=== PATIENT | male | born 1970 | race Caucasian/White ===

== ENCOUNTER 2018-05-29 09:45 | Day surgery (SDC) | payer BC, OTHER ==
[2018-05-29 09:47] LABS: Absolute Lymphocytes (CBC) 1.5 K/uL (0.7-4.9); Absolute Monocytes 1.3 K/uL (0.1-1.3); Absolute Neutrophil 6.8 K/uL (1.8-8.0); Basophils % 0.8 % (0-1.3); Eosinophils % 1.4 % (0-4.4); Hematocrit 47.9 % (39.6-49.0); Lymphocytes % 15.6 % (15.3-44.8); MPV 8.1 fL (7.6-11.3); RBC Red Blood Cell Count 5.16 M/uL (4.33-5.43)
--- NOTE | 2018-05-29 09:49 | RAD REPORT ---
EXAM DESCRIPTION: RAD - Chest Pa And Lat (2 Views) - 05/29/2018 9:43 am CLINICAL HISTORY: preop Chest pain. COMPARISON: No comparisons FINDINGS: The lungs are clear. The heart is normal in size. No displaced fractures. IMPRESSION: No acute or concerning finding suspected.
[2018-05-29] MEDS ORDERED: NA CHLORIDE 0.9% 1,000 ML ONE (09:56)
[2018-05-29 10:05] LABS: BUN Blood Urea Nitrogen 8 mg/dL (7-18); Bicarbonate 30 mmol/L (21-32); Glucose Level 143 mg/dL (74-106); Potassium 4.2 mmol/L (3.5-5.1); Sodium Level 141 mmol/L (136-145)
[2018-05-29] MEDS ORDERED: PROPOFOL 200 MG/20 ML VIAL IV ONE (10:26)
[2018-05-29] MEDS ORDERED: FENTANYL CITR 100 MCG/2 ML ONE ×2 (10:30→11:22)
[2018-05-29] MEDS ORDERED: MIDAZOLAM HCL 2 MG/2 ML INJ ONE ×2 (10:30→11:48)
[2018-05-29] MEDS ORDERED: LIDOCAINE 2% MPF 5 ML VIAL ONE (10:30)
[2018-05-29] MEDS ORDERED: ONDANSETRON 4 MG/2 ML VIAL ONE (10:30)
[2018-05-29] MEDS ORDERED: BUPIVACAINE 0.5% PF 10 ML VIAL ONE ×2 (10:40→11:38)
[2018-05-29] MEDS ORDERED: ROCURONIUM 50 MG/5 ML VIAL IV ONE (10:51)
--- NOTE | 2018-05-29 11:39 | P.BOP ---
Preoperative diagnosis: diabetes, infected back subq mass with abscess Postoperative diagnosis: same Primary procedure: excisional biopsy infected back subq mass [id number] with abscess drainage Estimated blood loss: <20cc Specimen: mass Findings: infected mass with abscess Anesthesia: General Complications: Other Drain(s): Other (wet to dry NS) Transferred to: Recovery Room Condition: Good
[2018-05-29] MEDS: HYDROMORPHONE HCL 1 MG/ML INJ ONE ×2 (11:58→12:04)
--- NOTE | 2018-05-29 13:25 | EKG ---
Test Date: 2018-05-29 Test Time: 09:33:10 [employer] Manager: PETR MEASUREMENT RESULTS: Intervals: Rate: 86 MN: 158 QRSD: 90 QT: 368 QTc: 440 [place]: P: 61 MN: 158 QRS: 36 T: 67 INTERPRETIVE STATEMENTS: Normal sinus rhythm Nonspecific T wave abnormality Abnormal ECG No previous ECG available for comparison Electronically Signed On 05-29-18 13:24:02 MD PHYSICIAN DERMATOLOGIST by Teo Knox
--- NOTE | 2018-05-29 21:59 | OP ---
Date of Procedure: 05/29/2018 Surgeon: Brenton Galloway MD Preoperative Diagnoses: 1.Diabetes. 2.Infected upper back subcutaneous mass with cellulitis and abscess. Postoperative Diagnoses: 1.Diabetes. 2.Infected upper back subcutaneous mass with cellulitis and abscess. Procedures: Excisional biopsy of infected back subcutaneous mass with abscess, drainage. Mass is ab out 12 x 10 cm. Findings: Infected mass with sebaceous content. Anesthesia: General plus local. Estimated Blood Loss: Less than 20 cc. Indications: This is the case of a male who comes to us with 2 masses, one on the lower back and one on the upper back; but the upper back became red, tender, warm. He is diabetic. It is getting wors e in the last 24 hours. We offered him immediate drainage of that area. Obviously, he wants area re move at the same time. So, we scheduled him for excisional biopsy of infected mass and drainage of a n abscess with benefits, alternatives, and risks including, but not limited to infection, bleeding, d amage to adjacent structures, anesthesia complications, recurrence, NC, and even . He also unde rstands this may not relieve the symptoms. He might need more than one surgical intervention. He un derstands he will require wound care. He signed a consent. Description Of Procedure: The patient was brought to the operating room, placed in supine position. Anesthesia was done without complication. The patient was placed in lateral decubitus position with proper protection. The upper back was prepped and draped in a sterile fashion. Local anesthesia wa s applied followed by sharp incision of the skin with a sharp knife. This let us go into the subcuta neous tissue. This was a very large mass. So, with the help of the Bovie cauterizer, we proceeded t o remove the mass and small margin around the area. This goes all the way down to muscle and fascia specimen. Pus was found in the deep pocket of this mass. So, we cultured that area. We removed the mass and obtained hemostasis and packed the area with wet-to-dry dressing after local ane sthetic. The patient tolerated the procedure well. The patient was sent to recovery in stable condi tion. RADHA/TONI Voice ID: [id number] Report ID: [id number]
--- NOTE | 2018-05-29 22:02 | DS ---
Date of Discharge: 05/29/2018 Diagnosis: Infected back subcutaneous mass with abscess. Procedure: Excisional biopsy of infected back subcutaneous mass, 12 x 10 cm, with abscess drainage. Disposition: Home. Activity: As tolerated. No heavy lifting. Followup: Follow up in my office in 1 week. Call for appointment at [phone]. Wet-to-dry dressing with normal saline daily. Medications: Include Tylenol No. 3 q.4 hours p.r.n. pain. The patient will continue on the antibiot ics provided by the primary doctor. RADHA/TONI Voice ID: [id number] Report ID: [id number]
== END 2018-05-29 13:14 | disposition home or self-care (01) ==
LOC: OR 09:45
PROVIDERS: ATTEND Surgery
PROC: 0J970ZZ Drainage of Back Subcutaneous Tissue and Fascia, Open Approach (ICD-10-PCS; 2018-05-29)
PROC: 0JB70ZZ Excision of Back Subcutaneous Tissue and Fascia, Open Approach (ICD-10-PCS; principal; 2018-05-29 10:00)
DX: L72.0 Epidermal cyst (principal); L02.212 Cutaneous abscess of back [any part, except buttock and flank]; E11.9 Type 2 diabetes mellitus without complications; I10 Essential (primary) hypertension; G47.30 Sleep apnea, unspecified; E66.01 Morbid (severe) obesity due to excess calories; Z68.41 Body mass index [BMI] 40.0-44.9, adult; Z88.0 Allergy status to penicillin; Z80.42 Family history of malignant neoplasm of prostate; Z83.3 Family history of diabetes mellitus; Z82.49 Family history of ischemic heart disease and other diseases of the circulatory system
CPT/HCPCS: 36415; 71046; 80048; 82962; 85025; 87070; 87075; 87205; 88304; 93005; J1170; J2250; J2405; J2704; J3010; J7030